=== PATIENT | female | born 1990 | race Caucasian/White ===

== ENCOUNTER 2018-07-02 04:53 | Day surgery (SDC) | payer OTHER ==
[2018-06-29 19:19] VITALS: BMI 31.8
[2018-07-02] MEDS ORDERED: IBUPROFEN 400 MG TABLET (FP) PO PRN (07:10)
[2018-07-02] MEDS ORDERED: ACETAMINOPHEN 325 MG TABLET (FP) PO PRN (07:10)
--- NOTE | 2018-07-02 07:10 | HP ---
History & Physical Update - History History: No Change - Physical Physical: No Change - Assessment Assessment: No Change (No change in HP) - Plan Plan: No Change
[2018-07-02] MEDS ORDERED: DEXAMETHASONE SOD PHOSPHATE 4 MG/1 ML VIAL ONE (11:49)
[2018-07-02] MEDS ORDERED: fentaNYL CITRATE 250 MCG/5 ML VIAL ONE (11:49)
[2018-07-02] MEDS ORDERED: LIDOCAINE HCL/PF 2% SDV 5ML VIAL ONE (11:49)
[2018-07-02] MEDS ORDERED: ROCURONIUM BROMIDE 50 MG/5 ML VIAL ONE (11:49)
[2018-07-02] MEDS ORDERED: PROPOFOL 20 ML ONE (11:49)
[2018-07-02] MEDS ORDERED: MIDAZOLAM HCL 2 MG/2 ML SINGLE DOSE VIAL ONE (12:45)
[2018-07-02] MEDS ORDERED: ceFAZolin SODIUM 1 GM VIAL IVPB ONE (13:10)
[2018-07-02] MEDS ORDERED: BUPIVACAINE HCL/PF 0.5% (5MG/ML) 10 ML VIAL ONE (13:12)
[2018-07-02] MEDS ORDERED: NEOSTIGMINE METHYLSULFATE 0.5 MG/ML - 10 ML MDV ONE (13:52)
[2018-07-02] MEDS ORDERED: GLYCOPYRROLATE 0.2 MG/1 ML VIAL ONE (13:52)
[2018-07-02] MEDS ORDERED: BUPIVACAINE HCL/PF (5 MG/ML) 30 ML VIAL IJ ONE (13:55)
[2018-07-02] MEDS ORDERED: ONDANSETRON 4 MG/2 ML VIAL IVPUSH PRN (14:47)
[2018-07-02] MEDS ORDERED: oxyCODONE HCL 5 MG TABLET PO PRN (14:47)
[2018-07-02] MEDS ORDERED: LACTATED RINGERS SOLUTION 1,000 ML IV SCH (15:00)
[2018-07-02] MEDS ORDERED: oxyCODONE HCL 5 MG TABLET ONE (15:40)
[2018-07-02 17:12] VITALS: BP 119/76; PULSE 73; TEMP 98.1
--- NOTE | 2018-07-02 17:29 | OP ---
Operative Note - Note: Operative Date: 07/02/18 Pre-Operative Diagnosis: Ovarian cyst, pelvic pain Operation: Left salpingectomy, Right ovarian cystectomy, cauterization of endometriosis Post-Operative Diagnosis: Other (Ovarian cyst, pelvic pain, endometriosis) Surgeon: Yarely Jay Explosives Mixer Operator: Lamin Paul Anesthesiologist/PROPERTIES SUPERVISOR: Oumar Mckee Anesthesia: General Estimated Blood Loss (mls): 5 Operative Report Dictated: Yes
--- NOTE | 2018-07-02 17:31 | SURG ---
Surgery Director Of Music Therapy Note Director Of Music Therapy: Lamin Paul PA-C Date of Service: 07/02/18 Diagnosis: Ovarian cyst, pelvic pain, endometriosis Procedure: Left salpingectomy, Right ovarian cystectomy, cauterization of endometriosis I was present for the entirety of the operative procedure. For further detail, please refer to operative report. Visit type - Case Type Case Type: Scheduled - Emergency Emergency Visit: No - New patient This patient is new to me today: Yes Date on this admission: 07/02/18 - Critical Care Critical Care patient: No
--- NOTE | 2018-07-02 20:22 | OP ---
DATE OF OPERATION: 07/02/2018 PREOPERATIVE DIAGNOSES: Pelvic pain, possibly right hydrosalpinx, and ovarian cyst. POSTOPERATIVE DIAGNOSES: Pelvic pain, possibly right hydrosalpinx, and ovarian cyst, including endometriosis of the tube as well as endometriosis of the bladder and the cul-de-sac. OPERATION: Left salpingectomy and right ovarian cyst and hydrosalpinx on the right tube as well as severe endometriosis, cul-de-sac and uterosacrals filled with endometriosis as well as the entire surface of the bladder was covered with endometriosis. Right tube also noted to have some hydrosalpinx, but right tube was not removed. Also, part of the procedure was cauterization of the endometriosis. PROCEDURE: Patient was taken to the operating room, placed in dorsal lithotomy position, prepped and draped in usual sterile fashion. Timeout was performed in accordance with hospital regulation. Thompson catheter was then placed into the bladder. Attention was then drawn to the umbilicus where a 5-mm umbilical incision was made. Veress needle was inserted into the cavity. Approximately 3-4 L of CO2 was insufflated in the cavity. Veress needle was then removed, and a 5-mm trocar was then inserted, laparoscope and camera attached. Visualization revealed again severe endometriosis noted in the cul-de-sac as well as the entire surface of the bladder. Cul-de-sac endometriosis was unable to be cauterized due to location noted near the ureter. Cauterization of the surface of the endometriosis of the bladder was done. Hydrosalpinx noted on the left tube; so, left salpingectomy was performed using LigaSure coagulation and cutting of the tube, and the tube was removed. Endometriosis was also noted on the tube. Attention was then drawn to the right side where hydrosalpinx was also seen and also ovary noted to have a right ovarian cyst. Right ovarian cystectomy was performed, and cyst was submitted to Pathology. Tube was not removed on the right side. Cauterization of the surface of the bladder was done, and attempted cauterization of cul-de-sac. However, again, location of ureters was close, so was not able to cauterize the cul-de-sac endometriosis. After sufficient cauterization of the endometriosis on the bladder, all instruments were then removed. CO2 was removed from the abdomen. Incision was closed using 4-0 Biosyn suture in a subcuticular fashion. Wound was washed and dressed. Patient had tolerated the procedure well, was taken to Recovery in stable condition. Estimated blood loss: 5 mL. CATARINO LOPEZ M.D. [id number]
--- NOTE | 2018-07-04 12:06 | PATH ---
Surgical Pathology Report Patient Name: GERRY RICKS [facility]. Rec. #: [id number] /Age/Gender: 1990 (Age: 28) / F Account: [id number] Location: [facility] [place] [facility] Taken: 07/02/2018 Received: 07/03/2018 Reported: 07/04/2018 Physicians: Yarely Jay M.D. Specimen(s) Received A: RIGHT CYST B: LEFT FALLOPIAN TUBE Clinical History Pelvic pain, ovarian cyst Final Diagnosis A. RIGHT OVARIAN CYST, CYSTECTOMY: HEMORRHAGIC LUTEAL CYST. B. LEFT FALLOPIAN TUBE, SALPINGECTOMY: FULL LUMINAL PORTION OF UNREMARKABLE FALLOPIAN TUBE, INCLUDING FIMBRIATED END. NO ENDOMETRIOSIS IDENTIFIED. Electronically Signed Tiburcio Ratliff M.D. Gross Description A. Received in formalin labeled "right cyst," is a 2.5 x 2.3 x 0.3 cm aggregate of child lin fragments of soft tissue, consistent with a disrupted cyst. The specimen is entirely submitted in one cassette. B. Received in formalin labeled "left fallopian tube," is a 5.5 cm in length fimbriated fallopian tube. The outer surface is child-sheikh and smooth. Sectioning reveals an unremarkable lumen. Skatesman sections are submitted in 2 cassettes as follows: 1-fimbria; 2-cross sections of fallopian tube. 07/03/2018 [facility]07/03/2018
== END 2018-07-02 16:55 | disposition home or self-care (01) ==
LOC: JASU-SURG 04:53
PROVIDERS: ATTEND Obstetrics & Gynecology
PROC: 0UB04ZZ Excision of Right Ovary, Percutaneous Endoscopic Approach (ICD-10-PCS; principal; 2018-07-02 10:15)
PROC: 0UT64ZZ Resection of Left Fallopian Tube, Percutaneous Endoscopic Approach (ICD-10-PCS; 2018-07-02 10:15)
DX: N83.01 Follicular cyst of right ovary (principal); N80.3 Endometriosis of pelvic peritoneum; N80.0 Endometriosis of uterus; N80.8 Other endometriosis
CPT/HCPCS: 36415; 84703; 86850; 86900; 86901; 88305-TC; 94760

== ENCOUNTER 2018-12-13 04:54 | Day surgery (SDC) | payer OTHER ==
[2018-12-12 19:28] VITALS: BMI 32.3
[2018-12-13] MEDS ORDERED: BUPIVACAINE HCL/PF 0.5% (5 MG/ML) 30 ML VIAL IJ ONE (09:26)
[2018-12-13] MEDS ORDERED: IBUPROFEN 800 MG/8 ML IJ IVPB PRN (09:49)
[2018-12-13] MEDS ORDERED: IBUPROFEN 400 MG TABLET (FP) PO PRN (09:49)
--- NOTE | 2018-12-13 09:49 | HP ---
History & Physical Update - History History: No Change - Physical Physical: No Change - Assessment Assessment: No Change - Plan Plan: No Change (No change in HP)
[2018-12-13] MEDS ORDERED: ceFAZolin SODIUM 1 GM VIAL IVPB ONE (09:55)
[2018-12-13] MEDS ORDERED: LACTATED RINGERS SOLUTION 1,000 ML IV SCH (10:00)
[2018-12-13] MEDS ORDERED: BUPIVACAINE HCL/PF 0.5% (5MG/ML) 10 ML VIAL IJ ONE ×2 (11:01)
--- NOTE | 2018-12-13 11:49 | OP ---
Operative Note - Note: Operative Date: 12/13/18 Pre-Operative Diagnosis: Pelvic pain. endometriosis Operation: Laparoscopic right salpingectomy ( pt did not have a left falopian tube and expecting both tubes to be removed) Findings: endometriosis of right fallopian tube and right ovary, culde sac and bladder extensive no left fallopian tube seen - removed last surgery Post-Operative Diagnosis: Same as Pre-op Surgeon: Yarely Jay Display Associate: Trudy Childress Anesthesia: General Estimated Blood Loss (mls): 10 Operative Report Dictated: Yes
--- NOTE | 2018-12-13 12:19 | OP ---
DATE OF OPERATION: 12/13/2018 PREOPERATIVE DIAGNOSES: Endometriosis, pelvic pain, and right salpingectomy and ovarian cystotomy. POSTOPERATIVE DIAGNOSES: Endometriosis, pelvic pain, and right salpingectomy and ovarian cystotomy, right ovarian cyst, as well as endometriosis of the fallopian tube on the right. SURGEON: Yarely Jay MD FILE SYSTEM INSTALLER: Trudy Childress PA-C ANESTHESIA: General. ANESTHESIOLOGIST: Allan Martin MD ESTIMATED BLOOD LOSS: 10 mL. PROCEDURE: The patient was taken to the operating room, placed in dorsal lithotomy position, prepped and draped in the usual sterile fashion. Timeout was performed in accordance with hospital regulation. Timeout showed that the patient had signed for a left salpingectomy; however, patient's left tube was removed and patient's understanding was that the other tube was going to be removed and it was going to be a right salpingectomy. After timeout had been done, Kochers were then used to grasp the umbilicus. Umbilicus incision was made. Veress needle was inserted into the cavity. Approximately 3 to 4 L of CO2 was insufflated in the cavity. Veress needle was then removed and a 5-mm trocar was then inserted. Laparoscope and camera visualization revealed the left tube had been removed and the right tube was noted to have some endometriosis. Endometriosis was noted in the bowel, in the cul-de-sac, mostly on the right side of the patient, and also on the right ovary. Left ovary was noted to be normal, but the right ovary had endometriosis on it. Two trocars were placed after incisions were made in the left and lower abdomen. Incisions were inserted under direct visualization. The hook coagulation device was used to coagulate extensively the bladder endometriosis. Left side of the patient noted to have some endometriosis around where the fallopian tube used to be, so coagulation on that side was done. Also, in the cul-de-sac, endometriosis was seen and coagulation with the hook instrument was done. Left side of the patient, all endometriosis had been coagulated, and attention was then drawn to the right side, where elevation of the uterus was done and noted to have extensive endometriosis located in lower abdomen of the patient as well as the cul-de-sac as well as on the right ovary, right tube. The coagulation was done again with the hook cannula instrument and coagulation of the endometriosis was done, both on the right ovary as well as on the cul-de-sac area. Ureters were identified and found to be peristalsing and the coagulation was far away from the ureters. The tube was grasped with a grasper and LigaSure was then used to coagulate and cut the right fallopian tube away from the patient as well as the endometriosis noted on the tube. The tube was then removed and submitted to Pathology. After coagulation had been done, hemostasis was achieved, irrigation was done. All areas of endometriosis, both seen, were black areas, clear areas, as well as brown areas, were all coagulated. All instruments then removed. CO2 was removed from the abdomen. All tubes had been removed and ovary had been coagulated for the endometriosis and was noted to be normal after procedure was done. All instruments were removed, CO2 was removed from the abdomen. The incisions were then closed using 4-0 Biosyn suture in a subcuticular fashion. Thompson catheter was then removed and estimated blood loss was 10 mL. Rocky [id number]
[2018-12-13] MEDS ORDERED: ONDANSETRON 4 MG/2 ML VIAL IVPUSH PRN (13:05)
[2018-12-13] MEDS ORDERED: oxyCODONE HCL 5 MG TABLET PO PRN (13:05)
[2018-12-13] MEDS ORDERED: ACETAMINOPHEN 325 MG TABLET (FP) PO PRN (13:05)
--- NOTE | 2018-12-13 13:06 | SURG ---
Surgery University Intern Note University Intern: Trudy Childress PA-C Date of Service: 12/13/18 Diagnosis: Pelvic pain. endometriosis Procedure: Laparoscopic right salpingectomy ablation of endometreosis I was present for the entirety of the operative procedure. For further detail, please refer to operative report. Visit type - Case Type Case Type: Scheduled - Emergency Emergency Visit: No - New patient This patient is new to me today: Yes Date on this admission: 12/13/18
--- NOTE | 2018-12-13 14:35 | EKG ---
Test Reason : Blood Pressure : / mmHG Vent. Rate : 071 BPM Atrial Rate : 071 BPM P-R Int : 164 ms QRS Dur : 084 ms QT Int : 418 ms P-R-T Axes : 000 021 025 degrees QTc Int : 454 ms NORMAL SINUS RHYTHM NORMAL ECG NO PREVIOUS ECGS AVAILABLE Confirmed by PABLO FERNÁNDEZ MD ([id number]) on 12/13/2018 2:34:55 PM Referred By: Confirmed By:PABLO FERNÁNDEZ MD
[2018-12-13] MEDS ORDERED: oxyCODONE HCL 5 MG TABLET PO ONE (14:55)
[2018-12-13 16:26] VITALS: BP 119/73; PULSE 68; TEMP 98
--- NOTE | 2018-12-18 08:26 | PATH ---
Surgical Pathology Report Patient Name: GERRY RICKS [facility]. Rec. #: [id number] /Age/Gender: 1990 (Age: 28) / F Account: [id number] Location: [facility] [place] [facility] Taken: 12/13/2018 Received: 12/13/2018 Reported: 12/18/2018 Physicians: Yarely Jya M.D. Specimen(s) Received A: RIGHT FALLOPIAN TUBE B: CYST Clinical History Endometriosis, pelvic pain Final Diagnosis A. FALLOPIAN TUBE, RIGHT, SALPINGECTOMY: UNREMARKABLE FALLOPIAN TUBE (INCLUDING FIMBRIATED END AND FULL LUMINAL PORTION). B. CYST, EXCISION: TUBAL TYPE EPITHELIUM SURROUNDED BY FIBROMUSCULAR WALL. SEE COMMENT. Comment: Findings may represent portion of fallopian tube. Immunohistochemical stain performed at [place], [place] ([id number]) and interpreted at [facility] show CD10 is negative. Clinical findings of endometriosis noted. Suggest clinical correlation. Positive and negative controls (internal if applicable) show appropriate results. Electronically Signed Noris Tovar M.D. Gross Description A. Received in formalin labeled "right fallopian tube," is a 6 cm in length fimbriated fallopian tube. The outer surface is pink-child. Sectioning reveals an unremarkable lumen. Propeller Tester sections are submitted in 2 cassettes as follows: 1-fimbria; 2-cross sections of fallopian tube. B. Received in formalin labeled "cyst" are 2 irregular fragments of pink-child soft tissue measuring 0.2 and 0.5 cm. Entire specimen is submitted in one cassette. MLSZ/12/13/2018 [facility]/12/13/2018
== END 2018-12-13 15:35 | disposition home or self-care (01) ==
LOC: JASU-SURG 04:54
PROVIDERS: ATTEND Obstetrics & Gynecology
PROC: 0UB04ZZ Excision of Right Ovary, Percutaneous Endoscopic Approach (ICD-10-PCS; 2018-12-13)
PROC: 0UT54ZZ Resection of Right Fallopian Tube, Percutaneous Endoscopic Approach (ICD-10-PCS; principal; 2018-12-13 10:45)
DX: N80.0 Endometriosis of uterus (principal); N80.2 Endometriosis of fallopian tube; N83.201 Unspecified ovarian cyst, right side
CPT/HCPCS: 36415; 84703; 86850; 86900; 86901; 88302-TC; 88304-TC; 93005; 93010; 94760